=== PATIENT | female | born 1960 | race Caucasian/White ===

== ENCOUNTER 2021-02-01 12:34 | Inpatient (IN) ==
[2021-02-01] MEDS ORDERED: *HR* Heparin 5,000 UNIT/ML VIAL IVP ONE (13:14)
[2021-02-01] MEDS ORDERED: *HR* Heparin 5,000 UNIT/ML VIAL IVP PRN ×2 (13:14)
[2021-02-01] MEDS ORDERED: Heparin 25,000UNIT/250ML 1/2NS 25,000 UNIT/250 ML IV.SOLN IVC SCH (13:15)
[2021-02-01] MEDS ORDERED: levoFLOXacin 750 MG/150 ML 750 MG/150 ML BAG IVPB ONE (13:16)
[2021-02-01 14:01] LABS: Heparin anti-factor XA UFH < 0.04 IU/mL (0.30-0.70)
[2021-02-01 14:44] LABS: Alanine Aminotransferase 18 Units/L (7-52); Albumin 3.3 g/dL (3.5-5.7); Albumin/Globulin Ratio 1.1 (1.1-2.2); Alkaline Phosphatase 54 Units/L (34-104); Aspartate Amino Transferase 20 Units/L (13-39); BUN/Creatinine Ratio 41 (6-26); Bilirubin,Total 0.7 mg/dL (0.3-1.0); Blood Urea Nitrogen 13 mg/dL (6-20); C-Reactive Protein 31 mg/L (Less than 10); Calcium 8.9 mg/dL (8.6-10.3); Carbon Dioxide 38 mEq/L (23-29); Chloride 96 mEq/L (98-107); Glucose 102 mg/dL (70-105); Magnesium 1.9 mg/dL (1.6-2.6); Osmolality,Calculated 292 (280-300); Phosphorous 2.4 mg/dL (2.7-4.5); Potassium 4.1 mEq/L (3.5-5.1); Sodium 141 mEq/L (136-145); Total Protein 6.3 g/dL (6.4-8.9); Troponin I 0.03 ng/mL (< 0.04); eGFR For African Americans > 60 (> 60); eGFR For Non-African Americans > 60 (> 60)
[2021-02-01 14:45] LABS: D-Dimer 15219 ng/mLFEU (0-500)
[2021-02-01 14:50] LABS: Basophils % 0.5 %; Eosinophils % 0.3 %; Hematocrit 43.4 % (35.3-44.9); Hemoglobin 13.1 g/dL (11.5-15.4); Immature Granulocytes % 1.2 % (0-4); Lymphocytes # 0.6 K/mcL (0.6-4.6); Lymphocytes % 7.1 %; Mean Corpuscular HGB Conc 30.2 g/dL (31.6-35.5); Mean Corpuscular Hemoglobin 28.7 pg (28.0-33.3); Mean Platelet Volume 10.8 fL (9.4-12.4); Monocytes # 0.7 K/mcL (0.0-1.3); Monocytes % 7.7 %; Neutrophils # 7.4 K/mcL (1.6-8.9); Platelet Count 309 K/mcL (140-400); Red Blood Count 4.57 M/mcL (3.82-4.97); Red Cell Distribution Width 15.5 % (11.5-14.5); Segmented Neutrophils % 83.2 %; White Blood Count 8.9 K/mcL (4.3-11.1)
[2021-02-01] MEDS ORDERED: Isovue-370 500 ML BOTTLE IVP ONE (15:06)
[2021-02-01 15:58] LABS: Adenovirus Not Detected (Not Detect); Bordetella Pertussis Not Detected (Not Detect); Chlamydophila pneumoniae Not Detected (Not Detect); Coronavirus 229E Not Detected (Not Detect); Coronavirus HKU1 Not Detected (Not Detect); Coronavirus NL63 Not Detected (Not Detect); Coronavirus OC43 Not Detected (Not Detect); Human Metapneumovirus Not Detected (Not Detect); Human Rhinovirus/Enterovirus Not Detected (Not Detect); Influenza A Subtype 2009 H1 Not Detected (Not Detect); Influenza B Not Detected (Not Detect); Mycoplasma pneumoniae Not Detected (Not Detect); Parainfluenza Virus 1 Not Detected (Not Detect); Parainfluenza Virus 2 Not Detected (Not Detect); Parainfluenza Virus 3 Not Detected (Not Detect); Parainfluenza Virus 4 Not Detected (Not Detect); Respiratory Syncytial Virus Not Detected (Not Detect); SARS-CoV-2 Not Detected (Not Detect)
[2021-02-01] MEDS ORDERED: Ipratropium/Albuterol Neb 3 ML IH PRN (16:50)
[2021-02-01] MEDS ORDERED: Acetaminophen 325 MG TABLET PO PRN (17:14)
[2021-02-01] MEDS ORDERED: Ondansetron 4 MG/2 ML VIAL IVP PRN (17:14)
[2021-02-01] MEDS ORDERED: Melatonin 3 MG TABLET PO PRN (17:14)
[2021-02-01] MEDS ORDERED: Warfarin perPT PO PRN (18:00)
[2021-02-01] MEDS: Ipratropium/Albuterol Neb 3 ML IH SCH ×2 (18:06→20:17)
[2021-02-01 18:51] LABS: INR 1.2; Prothrombin Time 13.3 Seconds (9.4-12.1)
[2021-02-01] MEDS: predniSONE 20 MG TABLET PO SCH (19:56)
[2021-02-01] MEDS: *HR* Enoxaparin 40 MG/0.4 ML SYRINGE SQ SCH (19:56)
[2021-02-01] MEDS ORDERED: *HR* Warfarin 5 MG TABLET PO ONE (20:45)
[2021-02-02] MEDS: Ipratropium/Albuterol Neb 3 ML IH SCH ×4 (04:11→22:45)
[2021-02-02] MEDS: *HR* Enoxaparin 40 MG/0.4 ML SYRINGE SQ SCH (05:00)
[2021-02-02 06:10] LABS: INR 1.3
[2021-02-02] MEDS: predniSONE 20 MG TABLET PO SCH (09:43)
[2021-02-02] MEDS: *HR* Enoxaparin 60 MG/0.6 ML SYRINGE SQ SCH (17:30)
[2021-02-02] MEDS ORDERED: *HR* Warfarin 5 MG TABLET PO ONE (18:00)
[2021-02-03] MEDS: Ipratropium/Albuterol Neb 3 ML IH SCH ×3 (04:24→15:45)
[2021-02-03] MEDS: *HR* Enoxaparin 60 MG/0.6 ML SYRINGE SQ SCH ×2 (05:56→06:09)
[2021-02-03 06:47] LABS: INR 2.1; Prothrombin Time 23.6 Seconds (9.4-12.1)
[2021-02-03] MEDS: predniSONE 20 MG TABLET PO SCH (08:23)
[2021-02-03 16:00] VITALS: BP 131/82; PULSE 80; TEMP 98; O2SAT 96
== END 2021-02-03 16:51 | disposition home or self-care (01) | DRG 720 ==
LOC: 2NNU 12:34 → EMEROOARM 12:34 → 2ANU 17:42 → SUATTDRO 18:28 → 2ANU 18:36
PROVIDERS: ADMIT Internal Medicine; ATTEND Internal Medicine